=== PATIENT | female | born 1965 | race Caucasian/White ===

== ENCOUNTER 2018-10-24 17:42 | Emergency (ER) | payer OTHER, BC ==
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
[2018-10-24 18:01] VITALS: BP 176/92; PULSE 59; TEMP 98.1; BMI 26.5
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
== END 2018-10-24 19:24 | disposition home or self-care (01) ==
LOC: JERFT 17:42
DX: S09.8XXA Other specified injuries of head, initial encounter (principal); S80.01XA Contusion of right knee, initial encounter; V49.88XA Car occupant (driver) (passenger) injured in other specified transport accidents, initial encounter; Y92.488 Other paved roadways as the place of occurrence of the external cause; Y93.89 Activity, other specified; Y99.8 Other external cause status; F41.8 Other specified anxiety disorders; F32.9 Major depressive disorder, single episode, unspecified
CPT/HCPCS: 70450-TC; 73562-TC-RT-FY; 99281-25

== ENCOUNTER 2022-02-19 04:44 | Day surgery (SDC) | payer BC ==
[2022-02-16 14:45] VITALS: BMI 32.5
[2022-02-19 13:15] VITALS: TEMP 97.5
[2022-02-19 14:11] VITALS: BP 110/62; PULSE 49
== END 2022-02-19 14:23 | disposition home or self-care (01) ==
LOC: JASU-ENDO 04:44
PROVIDERS: ATTEND Internal Medicine Gastroenterology
PROC: 0DBP8ZX Excision of Rectum, Via Natural or Artificial Opening Endoscopic, Diagnostic (ICD-10-PCS; 2022-02-19)
PROC: 0DBK8ZX Excision of Ascending Colon, Via Natural or Artificial Opening Endoscopic, Diagnostic (ICD-10-PCS; principal; 2022-02-19 12:45)
DX: Z12.11 Encounter for screening for malignant neoplasm of colon (principal); D12.2 Benign neoplasm of ascending colon; D12.8 Benign neoplasm of rectum; Z80.0 Family history of malignant neoplasm of digestive organs; I10 Essential (primary) hypertension
CPT/HCPCS: 88305-TC

== ENCOUNTER 2022-12-20 21:25 | Observation (INO) | payer BC ==
[2022-12-20] MEDS ORDERED: SODIUM CHLORIDE 0.9% 500 ML INFUS.BAG IV ONE (22:55)
[2022-12-20 22:58] LABS: BASO % 0.9 % (0-2.0); HEMATOCRIT 43.1 % (32.4-45.2); HEMOGLOBIN 14.7 GM/dL (10.7-15.3); LYMPH % 38.9 % (8-40); MCHC 34.2 g/dl (32.0-36.0); MEAN CELL VOLUME 87.8 fl (80-96); NEUT % 52.2 % (42.8-82.8); PLATELET COUNT 239 10^3/uL (134-434); RDW 13.4 % (11.6-15.6); WHITE BLOOD COUNT 10.1 K/mm3 (4.0-10.0)
[2022-12-20 23:05] LABS: INR 1.05 (0.83-1.09); PROTHROMBIN TIME (PATIENT) 12.2 SEC (9.7-13.0)
[2022-12-20 23:08] LABS: ACTIVATED PTT 33.1 SECONDS (25.2-36.5)
[2022-12-20 23:25] LABS: CALCIUM 9.5 mg/dL (8.5-10.1)
[2022-12-20 23:26] LABS: ALBUMIN 3.6 g/dl (3.4-5.0); BLOOD UREA NITROGEN 17.1 mg/dL (7-18)
[2022-12-20 23:29] LABS: CREATININE 0.7 mg/dL (0.55-1.3)
[2022-12-20 23:31] LABS: BILIRUBIN,TOTAL 0.2 mg/dL (0.2-1); TOT PROT 6.6 g/dl (6.4-8.2)
[2022-12-20 23:44] LABS: N-TERMINAL BNP 45.8 pg/ml (5-125)
[2022-12-21] MEDS ORDERED: POTASSIUM CHLORIDE TABS 20 MEQ TABLET.ER (FP) PO ONE (01:48)
[2022-12-21] MEDS ORDERED: SODIUM CHLORIDE 1,000 ML IV SCH (02:00)
[2022-12-21] MEDS ORDERED: clonazePAM 0.5 MG TABLET PO SCH ×2 (02:15→10:00)
[2022-12-21 05:43] LABS: EPI CELLS 19 /uL (0-25.1); HYALINE CASTS 2 /uL (0-3.1); URINE APPEARANCE CLEAR; URINE BACTERIA 54 /uL (0-1359); URINE BILIRUBIN NEGATIVE (NEGATIVE); URINE COLOR YELLOW; URINE GLUCOSE (UA) NEGATIVE (NEGATIVE); URINE KETONE NEGATIVE (NEGATIVE); URINE LEUK ESTERASE TRACE (NEGATIVE); URINE NITRITE NEGATIVE (NEGATIVE); URINE PROTEIN NEGATIVE (NEGATIVE); URINE RBC 36 /uL (0-23.9); URINE WBC 31 /uL (0-25.8)
[2022-12-21 05:46] LABS: COCAINE, UR NEGATIVE (NEGATIVE); URINE BARBITURATES NEGATIVE (NEGATIVE)
[2022-12-21 05:47] LABS: PHENCYCLIDINE,URINE NEGATIVE (NEGATIVE); URINE AMPHETAMINES NEGATIVE (NEGATIVE)
[2022-12-21 06:08] LABS: METHADONE, UR NEGATIVE (NEGATIVE); OPIATES, URI NEGATIVE (NEGATIVE); URINE BENZODIAZEPINES POSITIVE (NEGATIVE)
[2022-12-21 07:05] LABS: BASO % 1.2 % (0-2.0); EOS % 2.9 % (0-4.5); HEMATOCRIT 40.9 % (32.4-45.2); HEMOGLOBIN 14.1 GM/dL (10.7-15.3); LYMPH % 39.5 % (8-40); MCH 30.8 pg (25.7-33.7); MCHC 34.5 g/dl (32.0-36.0); MEAN CELL VOLUME 89.5 fl (80-96); MEAN PLT VOLUME 9.6 fl (7.5-11.1); MONO % 8.4 % (3.8-10.2); PLATELET COUNT 211 10^3/uL (134-434); RBC 4.57 M/mm3 (3.60-5.2); RDW 13.5 % (11.6-15.6); WHITE BLOOD COUNT 8.3 K/mm3 (4.0-10.0)
[2022-12-21 07:28] LABS: ALBUMIN 3.3 g/dl (3.4-5.0); CALCIUM 8.7 mg/dL (8.5-10.1); MAGNESIUM 1.9 mg/dL (1.8-2.4)
[2022-12-21 07:29] LABS: BLOOD UREA NITROGEN 17.4 mg/dL (7-18)
[2022-12-21 07:30] LABS: CREATININE 0.6 mg/dL (0.55-1.3)
[2022-12-21 07:31] LABS: BILIRUBIN,TOTAL 0.6 mg/dL (0.2-1)
[2022-12-21 07:32] LABS: PHOSPHOROUS 4.5 mg/dL (2.5-4.9)
[2022-12-21 07:38] LABS: CHOLESTEROL 203 mg/dL (50-200)
[2022-12-21 07:39] LABS: LDL CHOLESTEROL (ONLY SJRH) 134 mg/dL (5-100); TRIGLYCERIDES 82 mg/dL (0-150)
[2022-12-21 07:41] LABS: HDL CHOLESTEROL 47 mg/dL (40-60)
[2022-12-21] MEDS ORDERED: clonazePAM 0.5 MG TABLET ONE (08:46)
[2022-12-21] MEDS ORDERED: ZINC SULFATE 220 MG CAPSULE (FP) ONE (08:46)
[2022-12-21] MEDS ORDERED: MULTIVITAMINS (DAILY MVI) TABLET (FP) ONE (08:47)
[2022-12-21] MEDS ORDERED: CHOLECALCIFEROL (VIT D3) 1,000 UNIT (25 MCG) TABLET ONE (08:47)
[2022-12-21] MEDS ORDERED: NICOTINE 14 MG/24 HOURS TOPICAL PATCH TD ONE (08:47)
[2022-12-21] MEDS ORDERED: ENOXAPARIN NA (PORCINE) 40 MG/0.4 ML DISP.SYRIN SQ ONE (08:48)
[2022-12-21] MEDS: CALCIUM (OYSTER SHELL) 500 MG TABLET (FP) PO SCH (09:30)
[2022-12-21] MEDS: ENOXAPARIN NA (PORCINE) 40 MG/0.4 ML DISP.SYRIN SQ SCH (09:30)
[2022-12-21] MEDS: CYANOCOBALAMIN 1,000 MCG TABLET (FP) PO SCH (09:30)
[2022-12-21] MEDS: ZINC SULFATE 220 MG CAPSULE (FP) PO SCH (09:30)
[2022-12-21] MEDS: NICOTINE 14 MG/24 HOURS TOPICAL PATCH TD SCH (09:30)
[2022-12-21] MEDS: MULTIVITAMINS (DAILY MVI) TABLET (FP) PO SCH (09:30)
[2022-12-21] MEDS: CHOLECALCIFEROL (VIT D3) 1,000 UNIT (25 MCG) TABLET PO SCH (09:31)
[2022-12-21] MEDS ORDERED: VALSARTAN 160 MG TABLET PO SCH (10:00)
[2022-12-21] MEDS ORDERED: amLODIPine BESYLATE 5 MG TABLET (FP) PO SCH (10:00)
[2022-12-21] MEDS ORDERED: clonazePAM 0.5 MG TABLET PO PRN (13:10)
[2022-12-21 19:28] VITALS: BMI 31.8
[2022-12-22 09:58] VITALS: RESP 18
[2022-12-22] MEDS ORDERED: amLODIPine BESYLATE 2.5 MG TABLET (FP) PO SCH (10:00)
[2022-12-22] MEDS ORDERED: LOSARTAN POTASSIUM 50 MG TABLET PO SCH (10:00)
[2022-12-22] MEDS ORDERED: amLODIPine BESYLATE 5 MG TABLET (FP) PO SCH (10:00)
[2022-12-22] MEDS ORDERED: REGADENOSON 0.4 MG/5 ML PRE-FILLED SYRINGE IVPUSH ONE (11:30)
[2022-12-22] MEDS: LOSARTAN POTASSIUM 25 MG TABLET PO SCH ×2 (11:31→14:22)
[2022-12-22] MEDS: NICOTINE 14 MG/24 HOURS TOPICAL PATCH TD SCH ×2 (11:32→14:24)
[2022-12-22] MEDS: CALCIUM (OYSTER SHELL) 500 MG TABLET (FP) PO SCH ×2 (11:32→14:26)
[2022-12-22] MEDS: ENOXAPARIN NA (PORCINE) 40 MG/0.4 ML DISP.SYRIN SQ SCH ×2 (11:32→14:18)
[2022-12-22] MEDS: ZINC SULFATE 220 MG CAPSULE (FP) PO SCH ×2 (11:32→14:19)
[2022-12-22] MEDS: CYANOCOBALAMIN 1,000 MCG TABLET (FP) PO SCH ×2 (11:33→14:26)
[2022-12-22] MEDS: CHOLECALCIFEROL (VIT D3) 1,000 UNIT (25 MCG) TABLET PO SCH ×2 (11:33→14:25)
[2022-12-22] MEDS: MULTIVITAMINS (DAILY MVI) TABLET (FP) PO SCH ×2 (11:33→14:26)
[2022-12-22 18:46] VITALS: BP 122/69; PULSE 52; TEMP 98.5
== END 2022-12-22 18:54 | disposition home or self-care (01) ==
LOC: JER 21:25 → JERBED 23:46 → J4W 12-21 16:17
PROVIDERS: ADMIT Internal Medicine; ATTEND Specialist
PROC: 3E023GC Introduction of Other Therapeutic Substance into Muscle, Percutaneous Approach (ICD-10-PCS; principal; 2022-12-20)
PROC: 3E0337Z Introduction of Electrolytic and Water Balance Substance into Peripheral Vein, Percutaneous Approach (ICD-10-PCS; 2022-12-20)
DX: R55 Syncope and collapse (principal); I10 Essential (primary) hypertension; F41.9 Anxiety disorder, unspecified; R42 Dizziness and giddiness; R07.89 Other chest pain; E66.8 Other obesity; Z68.31 Body mass index [BMI] 31.0-31.9, adult
CPT/HCPCS: 0241U-QW; 36415; 70450-TC; 70551-TC; 71045-TC-FY; 78452-TC; 80053; 80061; 80307; 81003; 83036; 83735; 83880; 84100; 84443; 84484; 85025; 85610; 85730; 87086; 93005; 93010; 93017; 93306-TC; 93880-TC; 95816; 96360; 96372; 99285-25; A9502; G0378; J2785